=== PATIENT | male | born 1935 | race Caucasian/White ===

== ENCOUNTER 2021-12-18 17:35 | Inpatient (IN) | payer MEDICARE, BC ==
[~2021-12-18] VITALS: Ht 172.7 cm; Wt 87.1 kg
[2021-12-18 19:38] LABS: Basophils # (auto) 0 10 ^3/uL (0-0.2); Basophils % (auto) 0.5 % (0.0-2.0); Eosinophils # (auto) 0.1 10 ^3/uL (0-0.8); Eosinophils % (auto) 1.9 % (0.0-7.0); Hematocrit 34.3 % (41.0-53.0); Hemoglobin 11.4 g/dL (13.5-17.5); Lymphocytes # (auto) 0.5 10 ^3/uL (0.4-5.4); Lymphocytes % (auto) 7.1 % (10.0-50.0); Mean Corpuscular Hemoglobin 32.1 pg (28.0-32.0); Mean Corpuscular Hgb Conc. 33.4 g/dL (32.0-36.0); Mean Corpuscular Volume 96.2 fL (80.0-100.0); Monocytes # (auto) 0.6 10 ^3/uL (0-1.3); Monocytes % (auto) 8.5 % (0.0-12.0); Red Blood Cells 3.56 10^6/uL (4.5-5.90); Red Cell Distribution Width 16.2 % (11.8-14.3); White Blood Cell 7.3 10^3/uL (4.4-10.8)
[2021-12-18 19:58] LABS: Albumin 3.9 g/dL (3.4-5.0); BUN/Creatinine Ratio 12.1; Calcium 9.1 mg/dL (8.5-10.1); Potassium 3.6 mmol/L (3.5-5.1)
[2021-12-18 20:00] LABS: Total Protein 7.8 g/dL (6.4-8.2)
[2021-12-18] MEDS ORDERED: cefTRIAXone 1GM/50ML D5W 50 ML IV ONE (20:15)
[2021-12-19] MEDS ORDERED: NITROGLYCERIN 0.4 MG SL TAB SL PRN (00:45)
[2021-12-19] MEDS ORDERED: DOCUSATE SOD 100 MG CAP PO PRN (00:45)
[2021-12-19] MEDS ORDERED: ACETAMINOPHEN 325 MG TAB PO PRN (00:45)
[2021-12-19] MEDS ORDERED: HYDROcodone-ACET 5/325MG TAB PO PRN (00:45)
[2021-12-19] MEDS ORDERED: AZITHROMYCIN 500MG/ 250ML 250 ML IV ONE (00:45)
[2021-12-19] MEDS ORDERED: ONDANSETRON HCL 4 MG/2 ML VIAL IV PRN (00:45)
[2021-12-19] MEDS ORDERED: MORPHINE SULFATE INJ 2 MG/ml SYRG IV PRN (00:45)
[2021-12-19] MEDS: SODIUM CHLORIDE 0.9% 1,000 ML IV SCH ×2 (01:03→09:34)
[2021-12-19] MEDS: LEVOTHYROXINE SODIUM 50 MCG TAB PO SCH (08:02)
[2021-12-19 08:40] LABS: Basophils # (auto) 0 10 ^3/uL (0-0.2); Basophils % (auto) 0.5 % (0.0-2.0); Eosinophils # (auto) 0.1 10 ^3/uL (0-0.8); Eosinophils % (auto) 1.9 % (0.0-7.0); Hematocrit 32.2 % (41.0-53.0); Hemoglobin 10.6 g/dL (13.5-17.5); Lymphocytes # (auto) 0.5 10 ^3/uL (0.4-5.4); Lymphocytes % (auto) 6.5 % (10.0-50.0); Mean Corpuscular Hemoglobin 31.8 pg (28.0-32.0); Mean Corpuscular Hgb Conc. 32.9 g/dL (32.0-36.0); Mean Corpuscular Volume 96.4 fL (80.0-100.0); Monocytes # (auto) 0.7 10 ^3/uL (0-1.3); Neutrophils % (auto) 81.1 % (37.0-80.0); Red Blood Cells 3.34 10^6/uL (4.5-5.90); White Blood Cell 7.3 10^3/uL (4.4-10.8)
[2021-12-19 08:59] LABS: Albumin 3.3 g/dL (3.4-5.0); Calcium 8.7 mg/dL (8.5-10.1); Potassium 3.7 mmol/L (3.5-5.1)
[2021-12-19 09:04] LABS: BUN/Creatinine Ratio 15.2; Bilirubin, Total 1.9 mg/dL (0.2-1.0); Total Protein 7.1 g/dL (6.4-8.2)
[2021-12-19] MEDS: ZINC SULFATE 220mg CAP or TAB PO SCH (09:24)
[2021-12-19] MEDS: ASCORBIC ACID 500 MG TAB PO SCH ×2 (09:25→22:04)
[2021-12-19] MEDS: MULTIPLE VITAMIN TAB PO SCH (09:25)
[2021-12-19] MEDS: FAMOTIDINE (10MG/ML) 2ML VL IV SCH ×2 (12:23→22:04)
[2021-12-19] MEDS ORDERED: hydrALAZINE HCL 25 MG TAB PO PRN (15:45)
[2021-12-19] MEDS ORDERED: ASPI-543 PO (16:36)
[2021-12-19] MEDS ORDERED: LOSA100T25 PO (16:36)
[2021-12-19] MEDS ORDERED: NITR0.4S29 SL (16:36)
[2021-12-19] MEDS ORDERED: VITA400T4 PO (16:36)
[2021-12-19] MEDS ORDERED: ALLO100T PO (16:36)
[2021-12-19] MEDS ORDERED: SERT50TA19 PO (16:36)
[2021-12-19] MEDS ORDERED: DOXA2TAB PO (16:36)
[2021-12-19] MEDS ORDERED: DULO60CA PO (16:36)
[2021-12-19] MEDS ORDERED: FENO145T27 PO (16:36)
[2021-12-19] MEDS ORDERED: OMEG1CAP36 PO (16:36)
[2021-12-19] MEDS ORDERED: DONE1TAB88 PO (16:36)
[2021-12-19] MEDS ORDERED: LEVO125T PO (16:36)
[2021-12-19] MEDS ORDERED: CARV6.2551 PO (16:36)
[2021-12-19] MEDS ORDERED: PANT1INJ3 PO (16:36)
[2021-12-19] MEDS ORDERED: DOXA8TAB2 PO (16:36)
[2021-12-19] MEDS ORDERED: TORS10TA12 PO (16:36)
[2021-12-19] MEDS ORDERED: ATOR10TA52 PO (16:36)
[2021-12-19] MEDS ORDERED: MULT-1018 PO (16:36)
[2021-12-19 17:00] VITALS: BP 173/79
[2021-12-19] MEDS ORDERED: ALBUTEROL SULF 2.5 MG/0.5ML(0.5%) NEB SOLN NEB PRN (17:15)
[2021-12-19 17:38] VITALS: BP 150/78
[2021-12-19 20:00] VITALS: BP 155/61
[2021-12-19] MEDS: AZITHROMYCIN 500MG/ 250ML 250 ML IV SCH (22:04)
[2021-12-19] MEDS: DONEPEZIL HYDROCHLORIDE 5 MG TAB PO SCH (22:04)
[2021-12-19] MEDS: CARVEDILOL 3.125 MG TAB PO SCH (22:05)
[2021-12-19 22:10] VITALS: BP 155/61
[2021-12-20] VITALS (7 sets, daily range): BP systolic 141–158; BP diastolic 59–94
[2021-12-20 06:29] LABS: Basophils # (auto) 0 10 ^3/uL (0-0.2); Basophils % (auto) 0.5 % (0.0-2.0); Eosinophils # (auto) 0.2 10 ^3/uL (0-0.8); Eosinophils % (auto) 2.5 % (0.0-7.0); Hematocrit 32.5 % (41.0-53.0); Hemoglobin 10.8 g/dL (13.5-17.5); Lymphocytes # (auto) 0.6 10 ^3/uL (0.4-5.4); Lymphocytes % (auto) 8.9 % (10.0-50.0); Mean Corpuscular Hemoglobin 32.1 pg (28.0-32.0); Mean Corpuscular Hgb Conc. 33.3 g/dL (32.0-36.0); Mean Corpuscular Volume 96.5 fL (80.0-100.0); Monocytes # (auto) 0.8 10 ^3/uL (0-1.3); Monocytes % (auto) 11.7 % (0.0-12.0); Neutrophils # (auto) 5.3 10 ^3/uL (1.6-8.6); Neutrophils % (auto) 76.4 % (37.0-80.0); Red Blood Cells 3.36 10^6/uL (4.5-5.90); Red Cell Distribution Width 15.9 % (11.8-14.3)
[2021-12-20 06:44] LABS: Calcium 9.2 mg/dL (8.5-10.1); Potassium 4.4 mmol/L (3.5-5.1)
[2021-12-20 06:50] LABS: Albumin 3.2 g/dL (3.4-5.0); BUN/Creatinine Ratio 23.2; Bilirubin, Total 1.6 mg/dL (0.2-1.0); Total Protein 6.8 g/dL (6.4-8.2)
[2021-12-20] MEDS: LEVOTHYROXINE SODIUM 50 MCG TAB PO SCH (06:50)
[2021-12-20] MEDS: ASCORBIC ACID 500 MG TAB PO SCH ×2 (09:17→22:20)
[2021-12-20] MEDS: ZINC SULFATE 220mg CAP or TAB PO SCH (09:17)
[2021-12-20] MEDS: FAMOTIDINE (10MG/ML) 2ML VL IV SCH ×2 (09:17→22:19)
[2021-12-20] MEDS: MULTIPLE VITAMIN TAB PO SCH (09:17)
[2021-12-20] MEDS: CARVEDILOL 3.125 MG TAB PO SCH ×2 (09:18→22:20)
[2021-12-20] MEDS: SODIUM CHLORIDE 0.9% 1,000 ML IV SCH (12:52)
[2021-12-20] MEDS: DONEPEZIL HYDROCHLORIDE 5 MG TAB PO SCH (22:19)
[2021-12-20] MEDS: AZITHROMYCIN 500MG/ 250ML 250 ML IV SCH (22:19)
[2021-12-21 05:00] VITALS: BP 133/50
[2021-12-21] MEDS: LEVOTHYROXINE SODIUM 50 MCG TAB PO SCH (07:12)
[2021-12-21 08:05] VITALS: BP 157/76
[2021-12-21 09:03] VITALS: BP 157/76
[2021-12-21] MEDS: ZINC SULFATE 220mg CAP or TAB PO SCH (10:09)
[2021-12-21] MEDS: MULTIPLE VITAMIN TAB PO SCH (10:10)
[2021-12-21] MEDS: CARVEDILOL 3.125 MG TAB PO SCH (10:10)
[2021-12-21] MEDS: FAMOTIDINE (10MG/ML) 2ML VL IV SCH (10:11)
[2021-12-21] MEDS: ASCORBIC ACID 500 MG TAB PO SCH (10:11)
[2021-12-21] MEDS ORDERED: MULT-1018 PO (11:01)
[2021-12-21] MEDS ORDERED: DOXY-346 PO (11:02)
== END 2021-12-21 14:24 | disposition home health service (06) | DRG 194 ==
LOC: ER 17:35 → OVERFLOW 12-19 00:34 → WEST WING 12-19 15:00
PROVIDERS: ADMIT Nurse Practitioner Family; ATTEND Nurse Practitioner
DX: J18.9 Pneumonia, unspecified organism (principal); J44.0 Chronic obstructive pulmonary disease with (acute) lower respiratory infection; D69.6 Thrombocytopenia, unspecified; M54.50 Low back pain, unspecified; F41.9 Anxiety disorder, unspecified; K21.9 Gastro-esophageal reflux disease without esophagitis; M10.9 Gout, unspecified; E78.5 Hyperlipidemia, unspecified; Z20.822 Contact with and (suspected) exposure to COVID-19; I10 Essential (primary) hypertension; F03.90 Unspecified dementia, unspecified severity, without behavioral disturbance, psychotic disturbance, mood disturbance, and anxiety; F32.A Depression, unspecified; Z96.641 Presence of right artificial hip joint; Z88.8 Allergy status to other drugs, medicaments and biological substances; Z91.041 Radiographic dye allergy status; Z79.899 Other long term (current) drug therapy; Z88.2 Allergy status to sulfonamides; E03.9 Hypothyroidism, unspecified
CPT/HCPCS: 36415; 71046; 72100; 73502; 80053; 83605; 83880; 84443; 84484; 85025; 87040; G0378; J0696; J3490

== ENCOUNTER 2022-07-29 11:44 | Emergency (ER) | payer BC, MEDICARE ==
[~2022-07-29] VITALS: Ht 170.2 cm; Wt 79.5 kg
[~2022-07-29 11:44] MED LIST: ALLO100T PO; ASPI-543 PO; ATOR10TA52 PO; CARV6.2551 PO; DONE1TAB88 PO; DOXA2TAB PO; DOXA8TAB2 PO; DOXY-346 PO; DULO60CA PO; FENO145T27 PO; LEVO125T PO; LOSA100T25 PO; MULT-1018 PO; NITR0.4S29 SL; OMEG1CAP36 PO; PANT1INJ3 PO; SERT50TA19 PO; TORS10TA12 PO; VITA400T4 PO
[2022-07-29 12:11] VITALS: BP 148/69
[2022-07-29 12:44] LABS: Basophils # (auto) 0 10 ^3/uL (0-0.2); Basophils % (auto) 0.4 % (0.0-2.0); Eosinophils # (auto) 0.1 10 ^3/uL (0-0.8); Eosinophils % (auto) 1.1 % (0.0-7.0); Hematocrit 43.3 % (41.0-53.0); Hemoglobin 14.6 g/dL (13.5-17.5); Lymphocytes # (auto) 0.8 10 ^3/uL (0.4-5.4); Mean Corpuscular Hemoglobin 33.3 pg (28.0-32.0); Mean Corpuscular Hgb Conc. 33.7 g/dL (32.0-36.0); Mean Corpuscular Volume 98.9 fL (80.0-100.0); Monocytes # (auto) 0.8 10 ^3/uL (0-1.3); Monocytes % (auto) 7.7 % (0.0-12.0); Neutrophils # (auto) 8.6 10 ^3/uL (1.6-8.6); Neutrophils % (auto) 82.8 % (37.0-80.0); Nucleated Red Blood Cells % 0.1 %; Red Blood Cells 4.38 10^6/uL (4.5-5.90); Red Cell Distribution Width 13.9 % (11.8-14.3); White Blood Cell 10.3 10^3/uL (4.4-10.8)
[2022-07-29] MEDS ORDERED: KETOROLAC TROMETH 30 MG/ML 1ML VIAL IV ONE (12:45)
[2022-07-29 13:00] LABS: Urine Bacteria NONE SEEN /hpf (None Seen); Urine Blood 1+ /uL (Negative); Urine Specific Gravity 1.012 (1.001-1.035); Urine WBC 138 /hpf (0 - 3)
[2022-07-29 13:01] LABS: Albumin 3.7 g/dL (3.4-5.0); Calcium 9.8 mg/dL (8.5-10.1); Potassium 4.4 mmol/L (3.5-5.1)
[2022-07-29 13:04] LABS: BUN/Creatinine Ratio 14.7; Bilirubin, Total 0.8 mg/dL (0.2-1.0); Total Protein 8.1 g/dL (6.4-8.2)
[2022-07-29] MEDS ORDERED: TAM04C PO (16:03)
[2022-07-29] MEDS ORDERED: CIPR-173 PO (16:03)
== END 2022-07-29 17:33 | disposition left against medical advice (07) ==
LOC: ER 11:44
DX: N39.0 Urinary tract infection, site not specified (principal); M54.59 Other low back pain; N20.1 Calculus of ureter; F41.9 Anxiety disorder, unspecified; F32.9 Major depressive disorder, single episode, unspecified; K21.9 Gastro-esophageal reflux disease without esophagitis; E78.5 Hyperlipidemia, unspecified; Z91.040 Latex allergy status; Z88.2 Allergy status to sulfonamides; Z79.899 Other long term (current) drug therapy; Z90.49 Acquired absence of other specified parts of digestive tract
CPT/HCPCS: 36415; 74176; 80053; 81001; 83690; 85025; 93005; 96374; 99285; J1885